=== PATIENT | female | born 1965 | race African-American/Black ===

== ENCOUNTER 2018-08-30 06:15 | Day surgery (SDC) | payer OTHER ==
[~2018-08-30] VITALS: Ht 162.6 cm; Wt 64.0 kg
[2018-08-30] MEDS ORDERED: LR 1,000 ML IV SCH (09:27)
[2018-08-30] MEDS ORDERED: MORPHINE 4 MG/ML INJ. SYRINGE IVP PRN ×3 (09:30)
[2018-08-30] MEDS ORDERED: METOCLOPRAMIDE HCL 10 MG/2 ML VIAL IVP PRN (09:30)
[2018-08-30] MEDS ORDERED: fentaNYL CITRATE 250 MCG/5 ML AMP ONE (11:05)
[2018-08-30] MEDS ORDERED: GLYCOPYRROLATE 0.2 MG/ML VIAL ONE (11:05)
[2018-08-30] MEDS ORDERED: ROCURONIUM BROMIDE 10 MG/ML (ZEMURON) ONE (11:05)
[2018-08-30] MEDS ORDERED: PROPOFOL 200MG/ 20ML VIAL (DIPRIVAN) IV ONE (11:05)
[2018-08-30] MEDS ORDERED: CLINDAMYCIN PHOSPHATE 600 mg/50mL D5W IV ONE (11:05)
[2018-08-30] MEDS ORDERED: NEOSTIGMINE METHYLSULFATE 1 MG/ML, 10 ML VIAL ONE (11:05)
[2018-08-30] MEDS ORDERED: KETOROLAC TROMETHAMINE 30 MG VIAL ONE (11:05)
[2018-08-30] MEDS ORDERED: LR 1,000 ML IV.SOLN IV ONE (11:05)
[2018-08-30] MEDS ORDERED: ONDANSETRON HCL 4 MG/2 ML VIAL ONE (11:05)
[2018-08-30] MEDS ORDERED: fentaNYL CITRATE/PF 100 MCG/2 ML AMP ONE (11:05)
[2018-08-30] MEDS ORDERED: SEVOFLURANE 15 MIN GAS INH ONE (11:05)
[2018-08-30] MEDS ORDERED: MIDAZOLAM HCL 5 MG/ML VIAL (VERSED) IV ONE (11:05)
[2018-08-30] MEDS ORDERED: METOCLOPRAMIDE HCL 10 MG/2 ML VIAL ONE (12:06)
[2018-08-30] MEDS ORDERED: MORPHINE 4 MG/ML INJ. SYRINGE ONE (12:09)
[2018-08-30] MEDS ORDERED: ONDANSETRON HCL 4 MG/2 ML VIAL IVP PRN (12:30)
[2018-08-30] MEDS ORDERED: OXYCODONE/ACETAMINOPHEN 5-325 TABLET PO PRN ×2 (12:30)
[2018-08-30] MEDS ORDERED: HYDROcodone/ACETAMIN 5-325 MG TAB (NORCO/ VICODIN) PO PRN (12:30)
[2018-08-30 12:38] VITALS: BP_SYST 116
[2018-08-30] MEDS ORDERED: OXYCODONE/ACETAMINOPHEN 5-325 TABLET ONE (12:39)
[2018-08-30] MEDS ORDERED: SIMETHICONE 80 MG TAB.CHEW PO SCH (13:00)
== END 2018-08-30 16:30 | disposition home or self-care (01) ==
LOC: SDS 06:15 → SMU 06:15 → SDS 16:30
PROVIDERS: ATTEND Specialist
DX: D25.9 Leiomyoma of uterus, unspecified (principal); I10 Essential (primary) hypertension; E03.1 Congenital hypothyroidism without goiter; Z98.890 Other specified postprocedural states; Z88.0 Allergy status to penicillin; Z79.899 Other long term (current) drug therapy
CPT/HCPCS: 36415; 58545; 86886; 86900; 86901; 88305; 93005; C1727; J1885; J2250; J2270; J2405; J2704; J2710; J2765; J3010 ×2; J3490 ×2; J7120; E0190